=== PATIENT | male | born 2000 | race Caucasian/White ===

== ENCOUNTER 2018-06-20 18:38 | Emergency (ER) | payer MEDICAID, SELFPAY ==
[2018-06-20 18:39] VITALS: BP 175/97; PULSE 106; RESP 19; TEMP 36.9; O2SAT 97; BMI 48.7
--- NOTE | 2018-06-20 19:24 | ED.VISSUMM ---
- ER Visit Summary Date of Service: 06/20/18 Chief Complaint: Migraine History of Present Illness: The patient is a 17 M with a history of chronic migraines for the past 3 years presented with what he describes as his typical migraine. He states that he has a migraine headache 2-3 days per week. He has been seeing his primary care physician and was trialed on multiple different migraine medications without resolution. He denies any new or concerning features. Denies visual changes. Denies neck pain or fever. No head trauma. Light does make it somewhat worse but otherwise no obvious relieving or exacerbating factors. Denies history of high blood pressure. Physical Examination: He is slightly hypertensive but other vitals are within normal limits. His repeat blood pressure was improved. Pupils are equal and reactive. Neck is supple. No meningeal findings. Heart tones are regular without murmur. Lungs are clear bilaterally. Abdomen is soft and nontender. Test Results: None performed Emergency Department Course and Treatment: This is a chronic recurrent problem for him. His blood pressure is somewhat elevated here today but he has a completely normal neurologic exam. It was repeated manually and was much better but I still think he needs close follow-up. He was advised to keep track of his pressures at home and follow closely with his family physician. Given the chronicity of his headaches and the fact that he states he has never seen a neurologist or had an MRI, I do think it is reasonable for him to see neurology at this point especially since he is having them multiple times per week. He looks well here and the headache was not sudden or severe at onset. No recent head trauma. I do not suspect subarachnoid hemorrhage or brain tumor at this time but I think he still should undergo outpatient imaging. His mother is at the bedside and she will help arrange this. He was given a referral to neurology. Treatment Plan: He was treated with oral Naprosyn, Benadryl, and Phenergan here. He did not want intramuscular medications ON IV. He was given referral to neurology. Disposition: Home stable condition Impression: Initial encounter chronic recurrent migraine, initial encounter elevated blood pressure in the emergency department without diagnosis of hypertension This note was generated with [employer] dictation software. It may contain incorrect words, spelling, and punctuation that were not noted in review of the chart prior to signing ED Disposition - Plan for ED Patient: Chief Complaint: Headache Instructions: ED Cephalgia Unspecified, Taking Your Blood Pressure Prescriptions: proMETHazine tablet [Phenergan] 25 mg PO Q6H PRN PRN #10 tablet PRN Reason: Nausea DiphenhydrAMINE [Benadryl] 25 mg PO BID PRN PRN #20 capsule PRN Reason: Pain Naproxen [Naprosyn] 500 mg PO BID PRN #20 tablet Referrals: NOT,DEFINED [Primary Care Provider] -
[2018-06-20] MEDS: DiphenhydrAMINE 25 MG Capsule 50 MG PO (19:30)
[2018-06-20] MEDS: Naproxen 375 MG Tablet 500 MG PO (19:30)
[2018-06-20] MEDS: proMETHazine 25 MG Tablet PO (19:30)
--- NOTE | 2018-06-20 19:31 | ED.DCSUM_ITS ---
- ER Visit Summary Date of Service: 06/20/18 Chief Complaint: [] History of Present Illness: The patient is a 17 M [] Physical Examination: [] Test Results: [] Emergency Department Course and Treatment: [] Treatment Plan: [] Disposition: [] Impression: [] This note was generated with [employer] dictation software. It may contain incorrect words, spelling, and punctuation that were not noted in review of the chart prior to signing ED Disposition - Plan for ED Patient: Chief Complaint: Headache Instructions: Taking Your Blood Pressure, ED Cephalgia Unspecified Prescriptions: proMETHazine tablet [Phenergan] 25 mg PO Q6H PRN PRN #10 tablet PRN Reason: Nausea DiphenhydrAMINE [Benadryl] 25 mg PO BID PRN PRN #20 capsule PRN Reason: Pain Naproxen [Naprosyn] 500 mg PO BID PRN #20 tablet Referrals: NOT,DEFINED [Primary Care Provider] -
[2018-06-20 19:32] VITALS: BP 140/90
[2018-06-20 19:33] VITALS: BP 140/90; PULSE 96; RESP 19; O2SAT 96
== END 2018-06-20 19:56 | disposition home or self-care (01) ==
LOC: ED 19:53
PROVIDERS: Emergency Provider Emergency Medicine; Family Provider Pediatrics; PCP Pediatrics
DX: G43.909 Migraine, unspecified, not intractable, without status migrainosus (principal); R03.0 Elevated blood-pressure reading, without diagnosis of hypertension
CPT/HCPCS: 99283

== ENCOUNTER 2019-11-03 08:10 | Emergency (ER) | payer MEDICAID, SELFPAY ==
[2018-11-29 12:19] VITALS: BMI 50.6
[2019-11-03 08:11] VITALS: BP 161/106; PULSE 119; RESP 17; TEMP 36.8; O2SAT 97; BMI 48.7
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
--- NOTE | 2019-11-03 09:35 | ED.DEP ---
ED Disposition - Plan for ED Patient: Instructions: Sprain Foot Prescriptions: Ibuprofen [Motrin] 800 mg PO TID PRN PRN #20 tab PRN Reason: Pain Or Fever Prescription Printed Referrals: Care Physician,No Primary [Primary Care Provider] - Georgiana Cooper DO [STAFF PHYSICIAN] - 5-7 Days
[2019-11-03] MEDS: Ibuprofen 400 MG Tablet 800 MG PO (09:52)
[2019-11-03 09:58] VITALS: BP 160/113; PULSE 81; RESP 18
== END 2019-11-03 10:07 | disposition home or self-care (01) ==
LOC: ED 08:38
PROVIDERS: Emergency Provider Emergency Medicine
DX: S93.602A Unspecified sprain of left foot, initial encounter (principal); W01.0XXA Fall on same level from slipping, tripping and stumbling without subsequent striking against object, initial encounter; Y93.9 Activity, unspecified
CPT/HCPCS: 73630; 99283

== ENCOUNTER 2021-07-16 15:20 | Emergency (ER) | payer MEDICAID, SELFPAY ==
[2021-07-16 15:21] VITALS: BP 140/95; PULSE 60; RESP 18; TEMP 36.2; O2SAT 100; BMI 30.1
--- NOTE | 2021-07-16 16:25 | EDS_ITS ---
HPI History of Present Illness Chief Complaint: Laceration Informant: patient Onset/Context/Timing Onset: Today Mechanism/Context: other (Dog bite) Location: Right upper lip Worsened by: Nothing Relieved by: Pressure Associated Symptoms Associated Symptoms: Negative for Parasthesias, Weakness, Inability to ambulate and Loss of consciousness Narrative Narrative: Patient presents with dog bite to his upper lip that occurred today. Patient states it was his dog that bit him. Patient states this occurred approximate 1 hour prior to arrival. Patient states his pain is sharp and aching. Patient states it is better when he applies pressure to the area. Patient is unsure of his last tetanus. Patient denies any other injuries. Patient states the dog's immunizations are up-to-date. Tetanus Immunization: Unknown [facility] Medical History History of frequent headaches Home Medications amoxicillin-pot clavulanate 875 mg PO Q12H #20 tablet 07/16/21 [Rx Last Taken Unknown] Allergy/AdvReac Type Severity Reaction Status Date / Time No Known Allergies Allergy Verified 07/16/21 15:21 Family History (Updated 11/29/18 @ 12:23 by Michelle Go) Other Cancer Heart disease Surgical History History of tonsillectomy and adenoidectomy Social History Smoking Status: Never smoker alcohol intake: never ROS ROS ED Constitutional Constitutional ED: Denies chills or fever(s) Eyes Eyes: Denies blurry vision or change in vision ENT ENT ED: Denies rhinorrhea or sore throat Cardiovascular Cardiovascular: Denies chest pain or palpitations Respiratory/Chest Respiratory/Chest: Denies cough or dyspnea Gastrointestinal Gastrointestinal: Denies nausea or vomiting Genitourinary Genitourinary ED: Denies dysuria or hematuria Musculoskeletal Musculoskeletal: Denies back pain or neck pain Integumentary Denies abscess or rash Neurologic Neurologic: Denies headache(s) or weakness Allergic/Immunologic Allergic/Immunologic ED: Denies mouth swelling or urticaria EXAM Physical Exam Const Vital Signs: 07/16/21 15:21 Temperature 97.2 F L Temperature Source Temporal Pulse Rate 60 Respiratory Rate 18 Blood Pressure 140/95 H Blood Pressure Mean 110 Pulse Ox 100 Oxygen Delivery Method Room Air Positive well nourished and well developed General Appearance ED: well developed HEENT HEENT Narrative: There is a 2.5 cm full-thickness linear laceration over the right upper lip. There is moderate gapping of the wound margins. There are no foreign bodies. There is no active bleeding noted. Teeth are intact. Oral mucosa is pink and moist. Oropharynx is clear. Neck full ROM General: Negative for tenderness Neuro oriented x3, CN's II-XII intact bilaterally, moves all extremities, no focal motor deficits and no sensory deficits noted Sensorium / Orientation: alert Psych mental status grossly normal PROC Procedures Lacerations Upper lip: Length: 2.5 cm Depth: Sub Q Shape: Linear Prep: Sterile Conditions and Chlorhexadine Laceration repair: Lidocaine, Nerve block (Infraorbital) and Wound explored Suture Information: Vicryl (5 simple interrupted #5-0 Vicryl subcutaneous sutures were placed), Ethilon (5 simple interrupted #6-0 nylon sutures were placed), Simple, 5-0 and 6-0 MDM MDM MDM Narrative Medical decision making narrative: The wound was cleaned. The wound was anesthetized with 1% plain lidocaine via infraorbital nerve block. The wound was closed with 5 simple interrupted #5-0 Vicryl subcutaneous sutures and 5 simple interrupted #6-0 nylon sutures under sterile technique. Patient tolerated the procedure well. Bacitracin dressing was applied. Patient was given a tetanus booster. Patient was given a dose of Augmentin here. Patient was given a prescription for Augmentin. Patient was instructed to follow-up with his primary care physician in 5 days for wound recheck and suture removal. Patient understood and was agreeable with the plan. All questions were answered. Discharge Plan Triage Chief Complaint: Laceration ED Provider: Deuce Villavicencio Dx/Rx/DC Orders Clinical Impression: Laceration of vermilion border of upper lip, Dog bite of face Instructions: ED Laceration: All Closures, ED Scar Tips to Minimize Prescriptions: New amoxicillin-pot clavulanate [amoxicillin-pot clavulanate] 875 MG tablet 875 mg PO Q12H Qty: 20 RF: 0 Primary Care Provider: Care Physician,No Primary Referrals: Maik Humphrey MD [STAFF PHYSICIAN] - 5 Days for suture removal Care Physician,No Primary [Primary Care Provider] - Disposition Disposition: Home, Self Care
[2021-07-16] MEDS: Diphth,Pertuss(Acell),Tet Vac 0.5 ML Vial IM (17:05)
[2021-07-16] MEDS: Lidocaine 1% (20 ml mdv) 20 ML Vial INFILT (17:06)
[2021-07-16] MEDS: Amox/Clavulanate 875 MG Tablet PO (17:24)
[2021-07-16 17:29] VITALS: RESP 18
== END 2021-07-16 17:33 | disposition home or self-care (01) ==
PROVIDERS: Emergency Provider Emergency Medicine
DX: S01.551A Open bite of lip, initial encounter (principal); Z23 Encounter for immunization; W54.0XXA Bitten by dog, initial encounter; Y93.89 Activity, other specified; Y92.009 Unspecified place in unspecified non-institutional (private) residence as the place of occurrence of the external cause; Y99.8 Other external cause status
CPT/HCPCS: 12011; 90715; 96372; 99283

== ENCOUNTER 2022-03-07 17:40 | Emergency (ER) | payer MEDICAID, SELFPAY ==
[2022-03-07 17:41] VITALS: BP 156/98; PULSE 110; RESP 18; TEMP 37.3; O2SAT 98; BMI 34.7
--- NOTE | 2022-03-07 18:41 | RAD_ITS ---
STUDY: XR Shoulder Min 2 Views REASON FOR EXAM: Male, 21 years old. PAIN TECHNIQUE: XR Shoulder Min 2 Views RIGHT COMPARISON: None. FINDINGS: Normal glenohumeral articulation. Normal acromioclavicular joint. Normal acromion. Fracture of the right proximal humerus. The soft tissue structures are unremarkable. Normal visualized pulmonary apex. RAD/Shoulder min 2 Views IMPRESSION: Fracture of the right proximal humerus. Electronically Signed: Ernesto Vazquez MD at 19:18 EDT ,
--- NOTE | 2022-03-07 18:41 | RAD_ITS ---
STUDY: XR Pelvis 1 or 2 Views 03/07/2022 6:56 PM REASON FOR EXAM: Male, 21 years old. PAIN TECHNIQUE: XR Pelvis 1 or 2 Views COMPARISON: None FINDINGS: There is a non-specific bowel gas pattern. Normal visualized soft tissue structures. Normal bilateral iliac wings, sacroiliac joints and visualized sacrum. Normal visualized bilateral superior and inferior pubic rami. Normal pubic symphysis. Normal ischial tuberosities. Normal visualized right femoral head. Normal right acetabulum. Normal right hip joint. Normal visualized left femoral head. Normal left acetabulum. Normal left hip joint. RAD/Pelvis 1 or 2 Views IMPRESSION: No acute findings. Electronically Signed: Ernesto Vazquez MD at 19:16 EDT ,
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
[2022-03-07 20:05] VITALS: BP 128/78; PULSE 78; RESP 16; O2SAT 98
== END 2022-03-07 20:25 | disposition home or self-care (01) ==
PROVIDERS: Emergency Provider Emergency Medicine; Visit Provider Emergency Medicine
DX: S42.291A Other displaced fracture of upper end of right humerus, initial encounter for closed fracture (principal); V68.0XXA Driver of heavy transport vehicle injured in noncollision transport accident in nontraffic accident, initial encounter; Y93.89 Activity, other specified; Y92.410 Unspecified street and highway as the place of occurrence of the external cause; E66.9 Obesity, unspecified; F17.290 Nicotine dependence, other tobacco product, uncomplicated; Z68.34 Body mass index [BMI] 34.0-34.9, adult
CPT/HCPCS: 72170; 73030; 73552; 99284

== ENCOUNTER 2022-05-31 11:30 | Outpatient (RCR) | payer MEDICAID, SELFPAY ==
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
--- NOTE | 2022-05-19 09:24 | HP.PTREVAL_ITS ---
GREGORIO Mcclain, It has been my pleasure to treat MARGUERITE GIBSON over the last 5 visits for Right proximal humerus fracture of greater tuberosity. Please see the progress note below for an update on the physical therapy plan of care! Subjective: Pt. reports having increase pain at anterior R shoulder, 3/10 pain today. No N/T. He reports being compliant with HEP. Pt. reports having anterior shoulder pain since his injury. He is back to work and is able to do most things, but has pain with any lifting and any over head activities. He saw his physician who reports the facture is doing much better, but do to this anterior shoulder pain she has concerns about biceps/labral issues. Objective/Function: POSTURE: Pt. has a marked thoracic kyphotic posture in sitting. Pt. is able to improve with TCing, but unable to maintain. PALPATION: pt. tender along long head of biceps worse at anterior sub acromial space. No pain along humerus, no pain along scapula. + speeds testing, + empty can (weakness and pain), negative drop test,. MMT: R shoulder: flexion 4+/5, and 4+/5, ext 5/5, ER 5-/5, IR 5/5 Pain noted with ER, flexion and ABD testing. ROM: AROM: R shoulder flexion 160deg, abd 170deg, functional ER C5, functional IR T12 tight feeling PROM: flexion 180deg mild increase NW, ABD 180deg mild increase NW, ER at 90deg of abd 90deg mild increase NW, IR at 90deg of abd 40deg. Pt. has signs of biceps involvement. I plan to slowly introduce stress to long head of biceps as tolerated along with strengthening RTC. Plan Plan: Start with RTC strengthening, lower load higher reps progressing as tolerated. Add in biceps DFM and progressive loading of biceps tendon as tolerated. Balance/Gait/Functional tests - Balance/Special Test Scores Quick DASH Score: 36.3625 Goals Goal 1:: Pt. will improve right shoulder AROM flexion and abduction > 160 degrees in order to improve reaching overhead. Goal Time Frame: 6-8 Weeks Goal Progress: Goal Met Goal 2:: Pt. will improve right shoulder strength to 4+/5 for all motions in order to complete ADL's. Goal Time Frame: 6-8 Weeks Goal Progress: Progressing Goal 3:: Pt. will be able to reach overhead and out to the side with no right shoulder pain. Goal Time Frame: 6-8 Weeks Goal Progress: Progressing Goal 4:: Pt. will be able to lift at least 20# overhead with no right shoulder pain. Goal Time Frame: 6-8 Weeks Goal Progress: Progressing Goal 5:: Pt. will rate right shoulder pain at worst at 3/10 with ADL's. Goal Time Frame: 6-8 Weeks Goal Progress: Progressing Goal 6:: Pt. will improve Quick Dash score < 40% impairment in order to improve ADL's. Goal Time Frame: 6-8 Weeks Goal Progress: Progressing Anticipated Interventions Patient/Client Instruction: Educate patient on: Condition, Plan of Care, Risk Factors, Benefits of Fitness Program For the Purpose of:: To foster healthy habits, To improve decision making, To facilitate caregiver knowledge, To improve self management, To prevent re- injury, To improve ability to perform tasks related to life management Therapeutic Exercise to Include: Strength training, Power training, Body mechanics, Postural training, Passive ROM, Active ROM For the Purpose of:: To decrease pain, To decrease swelling/inflammation, To increase ROM, To improve nutrient delivery to tissue, To increase oxygenation perfusion, To improve muscle performance and motor function, To improve health of tissue, To decrease soft tissue restriction, To increase flexibility/ROM Manual Therapy Techniques to Include: Massage, Mobilization, Soft tissue mobilization For the Purpose of:: To decrease pain, To decrease swelling/inflammation, To increase ROM, To improve nutrient delivery to tissue, To increase oxygenation perfusion, To improve muscle performance and motor function Please do not hesitate to contact me at [phone] by phone or if you have questions or concerns regarding this new plan of care! Sincerely, Mark Barreto DPT
== END 2022-05-31 19:00 | disposition home or self-care (01) ==
LOC: PT 11:30
PROVIDERS: PCP Family Medicine
DX: S42.251D Displaced fracture of greater tuberosity of right humerus, subsequent encounter for fracture with routine healing (principal); X58.XXXD Exposure to other specified factors, subsequent encounter
CPT/HCPCS: 97110; 97161; 97164

== ENCOUNTER → 2022-07-06 | Outpatient (CLI) | payer MEDICAID, SELFPAY ==
--- NOTE | 2022-07-06 10:35 | RAD_ITS ---
CLINICAL HISTORY: Male, 22 years old. Right shoulder pain. PROCEDURE: ARTHROGRAM - RIGHT SHOULDER. CONSENT: The procedure as well as the benefits and possible complications including infection and bleeding were explained to the patient. Informed consent was obtained. FLUOROSCOPY TIME (if supplied): (36 seconds) minutes/seconds Injection Information: 10 cc of dilute MRI contrast Number of images obtained: 5 TECHNIQUE: (All elements of maximal sterile barrier technique followed, including US elements as applicable) The patient was in the supine position. The overlying skin was prepped and draped in the usual sterile fashion. Following local anesthetic application and under direct fluoroscopic guidance, a 22-gauge spinal needle was placed into the shoulder joint. 2 cc of ISOVUE 300 was injected for confirmation. Following this, 10 cc of dilute MRI contrast was injected. The patient tolerated the procedure well. RAD/Arthrogram Shoulder w/ MRI IMPRESSION: Successful right shoulder arthrogram. The patient tolerated the procedure well. Electronically Signed: Andrew Davis MD at 12:10 EDT ,
--- NOTE | 2022-07-06 11:14 | MRI_ITS ---
STUDY: MR RIGHT SHOULDER ARTHROGRAPHY REASON FOR EXAM: Anterior right shoulder pain for 4 months after shoulder injury. TECHNIQUE: Standardized fat and water weighted pulse sequences were obtained in all 3 orthogonal planes after intra-articular instillation of dilute Clariscan. COMPARISON: Arthrogram images preceding the MRI, radiograph report 05/25/2022. FINDINGS: There is a low-grade partial-thickness tear of the articular surface of the supraspinatus tendon (T1 coronal images 10-11) measuring approximately 0.7 cm in length. There is a small linear high-grade partial-thickness tear of the articular surface of the distal infraspinatus tendon at the greater tuberosity insertion (T1 coronal image 8). Normal subscapularis tendon. Normal teres minor tendon. Normal supraspinatus muscle. Normal infraspinatus muscle. Normal subscapularis muscle. Normal teres minor muscle. Normal glenohumeral articulation. There is a healing nondisplaced fracture of the greater tuberosity with only mild residual bone edema (T2 coronal images 9-11). Normal biceps labral complex. Normal intracapsular long biceps tendon. Normal labrum. Normal capsulo- ligamentous complex. Normal rotator interval. Normal acromioclavicular articulation. There is a Type II morphology (curved), with a neutral orientation. There is no subacromial-subdeltoid bursal fluid. Normal visualized coracohumeral and coracoacromial ligaments. Normal deltoid muscle. Normal trapezius muscle. MRI/Upper Ext Jt Only W/Contrast IMPRESSION: Low-grade partial-thickness tear of the supraspinatus tendon. Small partial-thickness tear of the infraspinatus tendon. Healing nondisplaced fracture of the greater tuberosity. Electronically Signed: Greg Finley MD at 12:27 EDT ,
[2022-07-06] MEDS: Gadoterate Meglumine Diluted 10 ML, Iopamidol 5 ML, Lidocaine 1% (20 ml mdv) 5 ML, Epin... INTRAARTIC (11:40)
[2022-07-06] MEDS: Iopamidol 10 ML in Syringe 1 EACH 600 ML INTRAARTIC (11:40)
[2022-07-06] MEDS: Lidocaine 2% (5ml sdv) 5 ML VIAL.MPF INFILT (11:40)
== END | disposition home or self-care (01) ==
PROVIDERS: PCP Family Medicine
DX: S46.811A Strain of other muscles, fascia and tendons at shoulder and upper arm level, right arm, initial encounter (principal); X58.XXXA Exposure to other specified factors, initial encounter; M24.811 Other specific joint derangements of right shoulder, not elsewhere classified
CPT/HCPCS: 23350; 73222; 77002; Q9967

== ENCOUNTER 2023-02-08 07:47 | Day surgery (SDC) | payer MEDICAID, SELFPAY ==
[2023-02-08] VITALS (8 sets, daily range): BP systolic 110–143; BP diastolic 76–90; PULSE 61–92; RESP 16–18; TEMP 36.4–37.1; O2SAT 92–100; BMI 38.9
[2023-02-08] MEDS: Lactated Ringers 1,000 ML 15 ML IV ×3 (08:18→10:31)
[2023-02-08] MEDS: Cefazolin 2 GM in 0.9% Normal Saline 100 ML IV (08:59)
--- NOTE | 2023-02-08 09:15 | TESH_PTH ---
PATIENT: MARGUERITE GIBSON [place] [facility] [id number] AGE/SX: 22/M ROOM: RE02/08/[address]: Dr. Yoel Ross MD : 2000 BED: DIS: 02/08/2023 SPEC #: [id number] RECD: 02/08/23 14:00 STATUS: JARROD RADHA #: [id number] PRASHANT: 02/08/23 09:[address]: Yoel Ross DEPT: SURGICAL PATHOLOGY RECD BY: Yana Fernández ENTERED: 02/09/23 10:51 SP TYPE: TENDON OTHR DR: Dr. Georgiana Cooper, DO Tissues: Tendon and tendon sheath, NOS Procedures: Surgery Specimen Level III HEADER OPERATION: Shoulder arthroscopy, subacromial decompression PRE-OP DIAGNOSIS: Right rotator cuff tear and bicep pain TISSUE SUBMITTED: Biceps tendon MICROSCOPIC DIAGNOSIS Biceps tendon, excision: A piece of dense fibroconnective tissue with reactive changes. SJ:hernandez 02/10/2023 MICROSCOPIC DESCRIPTION Slides are reviewed. GROSS DESCRIPTION Received in fixative is one container labeled with the patient's name and designated biceps tendon. The specimen consists of an elongated fragment of white tendinous tissue with attached dark condon tissue measuring 5.0 x 0.7 x 0.6 cm. The specimen is sectioned and submitted in its entirety in one cassette. / AM:hernandez 02/09/2023 TC:5 CPT: 01230
[2023-02-08] MEDS: Epinephrine (1 mg/ml) 1 MG/ML VIAL (10:06)
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
--- NOTE | 2023-02-08 10:55 | DCINST_ITS ---
Discharge Instructions Diet Discharge Diet: No restrictions Activity Discharge Activity: Return to Normal Activity Ice area for (Minutes): 15 Additional Activity Instructions:: pendulums ok four times a day, hand wrist and elbow ROM as tolerated, no lifting over 1 pound Dressing / Incision Call your doctor if your incision/area has: Continuous Slow Oozing, Sudden Increased Bleeding, Increased Pain/ Swelling, Increased Redness, Foul Smelling Discharge and Swelling at the incision site Remove Dressing in: leave in place till F/U Follow Up Care Please Follow Up With: Yoel Ross MD When: 2 days Test Results: Test results from this visit will be discussed in further detail at your follow- up appointment, if applicable. Discharge Plan Admission Attending Provider: Yoel Ross Primary Care Provider: Georgiana Cooper Instructions Patient Instructions: After Shoulder Arthroscopy Discharge Orders/Prescriptions Prescriptions: New oxycodone-acetaminophen [Percocet] 5-325 mg tablet 1 tab PO Q4H MDD 6 PRN (Reason: pain) 5 Days Qty: 30 0RF No Action meloxicam [Mobic] 15 mg Tablet 15 mg PO PRN PRN (Reason: Pain) tramadol 50 mg Tablet 50 mg PO Q4H PRN (Reason: Pain) Referrals / Follow Up: Georgiana Cooper DO [Primary Care Provider] - Yoel Ross MD [Med Staff - Active Staff] - Disposition Disposition (needs filled in before D/C Order can be placed): Home, Self Care
--- NOTE | 2023-02-08 10:59 | OP.PCM_ITS ---
Problems Associated Problem List Diagnoses (1) Biceps tendinitis of right upper extremity: (2) Partial thickness rotator cuff tear: Report of Operation Date of Procedure: 02/08/23 Pre-Operative Diagnosis: Right shoulder impingement syndrome rotator cuff tear biceps tendinitis Post-Operative Diagnosis: Same Surgery/Procedure Performed:: Right shoulder arthroscopy, subacromial decompression, rotator cuff repair, biceps subpectoral tenodesis Surgeon: Yoel Ross Type of Anesthesia: Block,Regional and General Anesthesiologist: Yosi Milner Estimated Blood Loss (mL): 50 Description of Procedure: Patient brought the operating room theater. Placed supine on the table. 3 g IV Ancef administered prior to start of procedure. General anesthesia induced. Patient transferred right side up lateral decubitus with the aid of a beanbag positioner. Axillary roll placed. SCDs on legs. All bony prominences padded. Right upper extremity prepped and draped in usual sterile fashion chlorhexidine- based prep solution allowing over 3 minutes drying time prior to draping. 10 pounds of inline traction with the arm in the arm centeno 35 degrees of abduction was used. Preoperative timeout performed to confirm the site patient and surgery. I began by using a standard posterior arthroscopy portal inserting the arthroscope into the intra-articular portion of the shoulder. Did a diagnostic arthroscopy. Anterior portal created inside-out spinal needle localization through the rotator interval just anterior to the biceps tendon. Cartilage on the humeral head and glenoid appeared normal. There is a sublabral foramen. Some minor fraying gently debrided. No obvious labral tear that I could probe into. Subscapularis appeared normal. Undersurface of the anterior leading edge had partial-thickness fraying and tearing. Gently debrided. Long head of the biceps root was stable but there is longitudinal tearing of the biceps and able to slightly subluxate this medially therefore a performed a biceps tenotomy intra-articular using the ablator. No loose bodies. Bare spot appeared normal. Marked the tear using spinal needle. Then next inserted the arthroscope in the subacromial space. Moderate amount of noninflammatory bursitis removed that. Did a subacromial decompression to flat margins. The subacromial space was little bit narrowed this gave a little bit more working area. Identified the area of the tear that I previously marked with a spinal needle. This was at the anterior one third of the supraspinatus tendon insertion. No obvious full-thickness tearing therefore elected to do a trans tendon 'pasta' repair. I inserted 2 Arthrex fiber tack all suture suture anchors self punching, 1 anterior and 1 posterior to the tear at the area of the medial footprint. Set the anchors. Then passed the working stitch through the loop suture in the contralateral anchor passes through the anchor itself to create a knotless configuration. The same thing on the other anchor and therefore 2 anterior to posterior sutures repairing the tear down. I fixed these solidly and cut the sutures short. This created a solid repair. Took final arthroscopy pictures and withdrew the arthroscope. Next turned my attention to the biceps subpectoral tenodesis. Made a longitud inal incision overlying the long head of the biceps in the proximal anteromedial aspect of the humerus. Carried dissection down through skin and subcutaneous tissue achieved meticulous hemostasis. Incised the fascia in line with skin incision. Identified long head of the tendon delivered this through the incision. I shorten the tendon. I used the Arthrex Abad needle with loop suture for 5 throws to create a locking construct and then passed again the sutures just proximal to the final suture to create a locking construct. Cut the suture midway, passed the ends in opposite directions through the button. Then identified the biceps groove just distal to the pectoralis insertion. Used the spade tip drill bit to create a unicortical hole. Irrigated any bone dust. Then passed the button through this flipped the button. I then passed the tendon to the bone tunnel and passed 1 free limb of the suture back through the tendon and used 5 interrupted half hitches with the sutures cut short to lock the tendon down under appropriate tension. Repair was solid. Wound thoroughly irrigated subcutaneous tissue closed with 2-0 Vicryl sutures skin with 3-0 Monocryl. Skin cleaned with wet dry dressing followed application of Steri- Strips Adaptic 4 x 4 gauze ABD dressing and Mepore tape and a sling for the upper extremity with plan to place the abduction pillow once the patient is up a nd mobile. Case terminated patient woken up from the general anesthetic transferred off the operating table taken to postanesthetic care unit in stable condition. All sponge needle instrument counts were correct. Plan for the patient pendulum exercises QID discharged home according to day surgery criteria and follow-up in the office in 2 days time. Complications none Admit VTE Documentation VTE Present on Admission: No VTE Mechan Device Prophylaxis: SCD's Reason prophylaxis not ordered:: Treatment Not Indicated Procedures Musculoskeletal [id number]: Other Procedure See Report
[2023-02-08] MEDS: HYDROcodone Bitartrate/Apap 5/325 Tablet PO (12:55)
== END 2023-02-08 14:01 | disposition home or self-care (01) ==
LOC: SDC 07:48 → AC 07:49
PROVIDERS: PCP Family Medicine; Referring Provider Orthopaedic Surgery Sports Medicine; Visit Provider Orthopaedic Surgery Sports Medicine
PROC: (CPT 29805; principal; 2023-02-08 08:55)
DX: M75.21 Bicipital tendinitis, right shoulder (principal); S46.011S Strain of muscle(s) and tendon(s) of the rotator cuff of right shoulder, sequela; F17.290 Nicotine dependence, other tobacco product, uncomplicated; V89.2XXS Person injured in unspecified motor-vehicle accident, traffic, sequela
CPT/HCPCS: 23430; 29822; 29827; 01716; 88304; J7120; J2405

== ENCOUNTER → 2023-03-08 | Outpatient (CLI) | payer MEDICAID, SELFPAY ==
[2023-03-08 12:40] LABS: Hematocrit 50.4 % (40-54); Hemoglobin 16.7 g/dL (13.0-16.5); Mean Corp Hgb Conc 33.1 g/dL (32-36); Mean Corpuscular Volume 81.6 fL (80-94); Mean Platelet Vol. 9.8 fl (6.2-12.0); Platelet Count 299 K/mm3 (150-450); RBC Distribution Width CV 12.3 % (11.6-14.6); RBC Distribution Width SD 36.5 fl (35.1-43.9); Red Blood Count 6.18 M/mm3 (4.6-6.2); White Blood Count 7.1 K/mm3 (4.4-11.0)
[2023-03-08 13:12] LABS: Vitamin B12 474 pg/mL (211-911)
[2023-03-08 13:18] LABS: ALB/GLOB Ratio 1.3 RATIO (0.9-2.4); AST(SGOT) 15 U/L (15-37); Alanine Aminotransfer ALT/SGPT 31 U/L (16-61); Albumin, Serum 4.1 g/dL (3.2-5.0); Alkaline Phosphatase 77 U/L (45-117); Anion Gap 5 (5-15); BUN 19 mg/dL (7-18); BUN/Creat Ratio 19.3 RATIO (10-20); Calcium,Total 8.9 mg/dL (8.5-10.1); Chloride 104 mmol/L (98-107); Creatinine, Serum 0.98 mg/dL (0.70-1.30); EST Glomerular Filtration Rate 99 mL/min (>60); Est Glom Filt Rate - Afr Amer 120 mL/min (>60); Globulin 3.2 g/dL (2.2-4.2); Glucose 88 mg/dL (74-106); Potassium 3.7 mmol/L (3.5-5.1); Protein, Total 7.3 g/dL (6.4-8.2); Sodium Level 136 mmol/L (136-145); Thyroid Stim Hormone (TSH) 2.44 uIU/mL (0.358-3.74)
[2023-03-10 22:06] LABS: Vitamin B1, Thiamine 137.1 nmol/L (66.5-200.0)
== END | disposition home or self-care (01) ==
LOC: MTLAB 10:14
PROVIDERS: PCP Family Medicine; Referring Provider Psychiatry & Neurology Neurology; Visit Provider Psychiatry & Neurology Neurology
DX: R41.3 Other amnesia (principal); F07.81 Postconcussional syndrome
CPT/HCPCS: 36415; 80053; 82607; 82746; 84425; 84443; 85027

== ENCOUNTER → 2023-03-21 | Outpatient (CLI) | payer MEDICAID, SELFPAY ==
--- NOTE | 2023-03-21 06:43 | MRI_ITS ---
HISTORY: Postconcussive memory loss. TECHNIQUE: Multiplanar and multisequence MR images of the brain were obtained before and after the intravenous administration of 23 mL Clariscan. 336 images. COMPARISON: None. FINDINGS: BRAIN PARENCHYMA: No significant signal abnormality or enhancing lesion in the brain parenchyma. No abnormal focus of restricted diffusion. No acute intracranial hemorrhage identified. CSF SPACES: Cerebral ventricles, cortical sulci, and other extra-axial CSF spaces within normal limits in size for age. Cavum septum pellucidum incidentally noted. No significant midline shift or other mass effect.No extra-axial fluid collection. VASCULAR SYSTEM: Major intracranial flow voids are maintained. PARANASAL SINUSES AND MASTOID AIR CELLS: Polypoid mucosal thickening of the sphenoid and maxillary sinuses. ORBITS: Symmetric contents. MRI/Brain W/WO Contrast IMPRESSION: Unremarkable examination of the brain without evidence for significant signal abnormality or enhancing intracranial mass. Paranasal sinus mucous retention cysts. Electronically Signed: Margaret Davidson MD at 8:49 EDT ,
== END | disposition home or self-care (01) ==
LOC: MRI 06:41
PROVIDERS: PCP Family Medicine; Referring Provider Psychiatry & Neurology Neurology; Visit Provider Psychiatry & Neurology Neurology
DX: F07.81 Postconcussional syndrome (principal); R41.3 Other amnesia
CPT/HCPCS: 70553; A9575

== ENCOUNTER → 2023-03-23 | Outpatient (CLI) | payer MEDICAID, SELFPAY ==
--- NOTE | 2023-03-23 09:03 | RAD_ITS ---
STUDY: X-RAY - CERVICAL SPINE REASON FOR EXAM: Male, 22 years old. neck pain TECHNIQUE: AP and lateral view(s) of the cervical spine were obtained. COMPARISON: None FINDINGS: Normal anterior atlantoaxial articulation. Normal odontoid process. Normal cervical lordosis. Normal vertebral bodies and endplates. Normal disc space heights. Normal visualized intervertebral neuroforamina. The soft tissue structures are unremarkable. RAD/Cerv Spine 2 or 3 Views IMPRESSION: Normal x-ray examination of the visualized cervical spine. Electronically Signed: Rogelio Hernández MD at 22:32 EDT ,
== END | disposition home or self-care (01) ==
PROVIDERS: PCP Family Medicine; Referring Provider Psychiatry & Neurology Neurology; Visit Provider Psychiatry & Neurology Neurology
DX: F07.81 Postconcussional syndrome (principal); M54.2 Cervicalgia; R41.3 Other amnesia
CPT/HCPCS: 72040; 95819

== ENCOUNTER 2023-05-21 09:19 | Emergency (ER) | payer MEDICAID, SELFPAY ==
[2023-05-21 09:20] VITALS: BP 143/90; PULSE 77; RESP 18; TEMP 36.4; O2SAT 98; BMI 38.1
--- NOTE | 2023-05-21 09:54 | ED.VIS.LOWEX ---
HPI History of Present Illness Chief Complaint: Lower Extremity Injury Narrative Narrative: 22-year-old male presenting with right foot pain. He states he was moving some blocks at home and kicked 1 a little too hard. He states he did this intentionally but did not realize it would hurt. He states it hurts proximal to the right third toe. He states this happened about 3 days ago. He has been ambulatory with an antalgic gait. He has not tried ice but he did try ibuprofen and it did not help. He is only tried 1 dose. Denies pain elsewhere. No numbness or tingling. [facility] Medical History Internal derangement of right shoulder Loss of consciousness Vapes nicotine containing substance Wears glasses Home Medications meloxicam 15 mg tablet 15 mg PO DAILY 05/02/23 [History Last Taken Unknown] Allergy/AdvReac Type Severity Reaction Status Date / Time No Known Allergies Allergy Verified 05/21/23 09:20 Family History Mother Cancer Hypertension CVA (cerebral vascular accident) Diabetes Grandmother Hypertension Grandfather Colon cancer Hypertension Other COPD (chronic obstructive pulmonary disease) Heart disease Surgical History History of tonsillectomy and adenoidectomy Social History Smoking Status: Unknown if ever smoked Smokeless tobacco user: other Electronic Cigarette Use: with nicotine second hand exposure: No alcohol intake: never substance use type: does not use what type of physical activity do you participate in: weight training seatbelt use: sometimes ROS ROS ED Constitutional Constitutional ED: Denies chills, fever(s) or sweats Eyes Eyes: Denies blurry vision or change in vision ENT ENT ED: Denies ear pain or sore throat Cardiovascular Cardiovascular: Denies chest pain, palpitations or racing heartbeat Respiratory/Chest Respiratory/Chest: Denies cough, dyspnea or sputum Gastrointestinal Gastrointestinal: Denies abdominal pain, constipation, diarrhea, nausea or vomiting Genitourinary Genitourinary ED: Denies dysuria, hematuria or urinary frequency Musculoskeletal Musculoskeletal: Reports other Details: Right foot pain ; Denies arthralgias, myalgias or neck pain Integumentary Denies abscess, Abrasions or rash Neurologic Neurologic: Denies headache(s), paresthesias or weakness Psychiatric Psychiatric: Denies anxiety, depression, suicidal ideation or suicidal thoughts Endocrine Endocrinology: Denies polydipsia or polyuria EXAM Physical Exam Const Vital Signs: 05/21/23 09:20 Temperature 97.5 F L Temperature Source Temporal Pulse Rate 77 Respiratory Rate 18 Blood Pressure 143/90 H Blood Pressure Mean 107 Pulse Ox 98 Oxygen Delivery Method Room Air Positive well nourished General Appearance ED: NAD HEENT Reports moist mucous membranes normocephalic and atraumatic Chest Wall inspection of chest normal Resp normal respiratory effort and no retractions Auscultation: Negative for rales, rhonchi or wheezes Cardio regular rate and regular rhythm Extremity Extremity Narrative: Pain to palpation proximal to the third toe on the right. No deformity. No ecchymosis. No swelling. Right foot neurovascular intact brisk cap refill to all 5 toes. No pain at the base of the fifth. Neuro CN's II-XII intact bilaterally Sensorium / Orientation: alert Motor Exam: strength 5/5 throughout Psych mental status grossly normal Skin no wounds MDM MDM MDM Narrative Medical decision making narrative: Patient presenting with right foot pain. He was offered Toradol but declines. I did obtain an x-ray of the right foot which on my interpretation shows no acute fracture. Patient counseled on findings. Looks and he is already on meloxicam. I recommended he alternate Tylenol and ice and elevate this. Offered a postop shoe but declines. He was offered crutches but declines. He will be discharged home to follow-up with his PCP. Impression #1 right foot contusion Radiography Diagnostic Testing: Clinical Impression(s) from Imaging Studies Foot X-Ray 05/21/23 10:04 IMPRESSION: Normal x-ray examination of the foot. Electronically Signed: Stalin Kenny MD at 10:21 EDT , Discharge Plan Triage Chief Complaint: Lower Extremity Injury ED Provider: Daryl Llanes Dx/Rx/DC Orders Instructions: ED Foot Contusion Prescriptions: No Action meloxicam 15 mg tablet 15 mg PO DAILY Primary Care Provider: Georgiana Cooper Referrals: Georgiana Cooper DO [Primary Care Provider] - Disposition Disposition: Home, Self Care
--- NOTE | 2023-05-21 10:04 | RAD_ITS ---
STUDY: X-RAY - RIGHT FOOT CLINICAL: Male, 22 years old. Dorsal foot pain TECHNIQUE: 3 view(s) of the foot. COMPARISON: None. FINDINGS: Normal talus, calcaneus, and tarsal bones. Normal visualized subtalar, talonavicular, calcaneocuboid, tarsal and tarsometatarsal articulations. Normal metatarsi. Normal metatarsophalangeal joint of the great toe. Normal tibial and fibular sesamoid bones. Normal interphalangeal joint of the great toe. Normal phalanges of the great toe. Normal second through fifth metatarsophalangeal joints. Normal interphalangeal joints and phalanges of the lesser toes. The soft tissue structures are unremarkable. RAD/Foot min 3 Views IMPRESSION: Normal x-ray examination of the foot. Electronically Signed: Stalin Kenny MD at 10:21 EDT ,
== END 2023-05-21 11:03 | disposition home or self-care (01) ==
PROVIDERS: Emergency Provider Student in an Organized Health Care Education/Training Program; PCP Family Medicine; Visit Provider Student in an Organized Health Care Education/Training Program
DX: S90.31XA Contusion of right foot, initial encounter (principal); W22.8XXA Striking against or struck by other objects, initial encounter; Y93.89 Activity, other specified; Y99.8 Other external cause status; Y92.009 Unspecified place in unspecified non-institutional (private) residence as the place of occurrence of the external cause; F17.290 Nicotine dependence, other tobacco product, uncomplicated
CPT/HCPCS: 73630; 99282

== ENCOUNTER 2023-07-20 10:30 | Outpatient (RCR) | payer MEDICAID, SELFPAY ==
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
--- NOTE | 2023-03-30 10:30 | HP.PTREVAL ---
Dr. Yoel Ross MD, It has been my pleasure to treat MARGUERITE GIBSON over the last 8 visits for R shoulder rot cuff repair 02/08/23. Please see the progress note below for an update on the physical therapy plan of care! Subjective: I am getting better, but I have a ways to go Objective/Function: R shoulder MMT: flex= 7, abd= 14 #F. R shoulder pain ranges from 2-7/10. R shoulder ROM: flex= 135, abd= 110 degrees. Pt is progressing well at this time but still lacks functional strength and ROM Plan Plan: Cont with resisted strengthening at that time consisting of rotator cuff and scap stab ex's Balance/Gait/Functional tests - Balance/Special Test Scores Quick DASH Score: 50.0000 Goals Goal 1:: Decrease R shoulder pain x 50% to aid with sleep Goal Time Frame: 4-6 Weeks Goal Progress: Progressing Goal 2:: Increase R shoulder flex and abd ROM to within 90% of L UE to aid with overhead activity Goal Time Frame: 4-6 Weeks Goal Progress: Progressing Goal 3:: Increase R shoulder flex and abd strength to within 90% of L UE to aid with return to work without limitation Goal Time Frame: 4-6 Weeks Goal Progress: Progressing Goal 4:: I with HEP Goal Time Frame: 4-6 Weeks Goal Progress: Progressing Anticipated Interventions Patient/Client Instruction: Educate patient on: Condition, Plan of Care For the Purpose of:: To improve self management Therapeutic Exercise to Include: Strength training, Endurance training, Flexibilty training, Passive ROM, Active ROM, Scapular Strength/Stabilization For the Purpose of:: To decrease pain, To increase ROM, To improve muscle performance and motor function Cryotherapy (ice pack, ice massage): Yes For the Purpose of:: To decrease pain Please do not hesitate to contact me at [phone] by phone or if you have questions or concerns regarding this new plan of care! Sincerely, Ernesto Ivy, PT, ATC
--- NOTE | 2023-04-28 13:01 | HP.PTREVAL ---
Dr. Yoel Ross MD, It has been my pleasure to treat MARGUERITE GIBSON over the last 17 visits for R shoulder rot cuff repair 02/08/23. Please see the progress note below for an update on the physical therapy plan of care! Subjective: I am still sore and feel weak. I still cant sleep at night. Objective/Function: R shoulder pain ranges from 3-7/10. R shoulder ROM: flex= 170, abd= 170 degrees. R shoulder MMT: flex= 10, abd= 15 #F. Pt has progressed well with ROM, cont to lack functional strength and is painful Plan Plan: Cont with resisted strengthening at that time consisting of rotator cuff and scap stab ex's. [ End ] Balance/Gait/Functional tests - Balance/Special Test Scores Quick DASH Score: 45.4525 Goals Goal 1:: Decrease R shoulder pain x 50% to aid with sleep Goal Time Frame: 4-6 Weeks Goal Progress: Progressing Goal 2:: Increase R shoulder flex and abd ROM to within 90% of L UE to aid with overhead activity Goal Time Frame: 4-6 Weeks Goal Progress: Progressing Goal 3:: Increase R shoulder flex and abd strength to within 90% of L UE to aid with return to work without limitation Goal Time Frame: 4-6 Weeks Goal Progress: Progressing Goal 4:: I with HEP Goal Time Frame: 4-6 Weeks Goal Progress: Progressing Anticipated Interventions Patient/Client Instruction: Educate patient on: Condition, Plan of Care For the Purpose of:: To improve self management Therapeutic Exercise to Include: Strength training, Endurance training, Flexibilty training, Passive ROM, Active ROM, Scapular Strength/Stabilization For the Purpose of:: To decrease pain, To increase ROM, To improve muscle performance and motor function Cryotherapy (ice pack, ice massage): Yes For the Purpose of:: To decrease pain Please do not hesitate to contact me at [phone] by phone or if you have questions or concerns regarding this new plan of care! Sincerely, Ernesto Ivy, PT, ATC
--- NOTE | 2023-06-06 09:39 | HP.PTREVAL ---
Re-Evaluation Intro: Dr. Yoel Ross MD, It has been my pleasure to treat MARGUERITE GIBSON over the last 29 visits for R shoulder rot cuff repair 02/08/23. Please see the progress note below for an update on the physical therapy plan of care! Subjective Subjective: I am sore from lifting heavy stuff Objective Objective/Function: Pt reports his pain ranges from 0-2/10 R shoulder ROM: flex= 155, abd= 155 degrees R shoulder MMT: flex= 22, abd= 44 #F Pt is still limited with work requirements at this time Plan Plan Plan: Cont with resisted strengthening, rotator cuff and scap stab ex's with further approval Balance/Gait/Functional tests Balance/Special Test Scores Quick DASH Score: 13.6350 Goals Goals Goal 1:: Decrease R shoulder pain x 50% to aid with sleep Goal Time Frame: 4-6 Weeks Goal Progress: Goal Met Goal 2:: Increase R shoulder flex and abd ROM to within 90% of L UE to aid with overhead activity Goal Time Frame: 4-6 Weeks Goal Progress: Goal Met Goal 3:: Increase R shoulder flex and abd strength to within 90% of L UE to aid with return to work without limitation Goal Time Frame: 4-6 Weeks Goal Progress: Progressing Goal 4:: I with HEP Goal Time Frame: 4-6 Weeks Goal Progress: Progressing Anticipated Interventions Anticipated Interventions Patient/Client Instruction: Educate patient on: Condition and Plan of Care For the Purpose of:: To improve self management Therapeutic Exercise to Include: Strength training, Endurance training, Flexibilty training, Passive ROM, Active ROM and Scapular Strength/Stabilization For the Purpose of:: To decrease pain, To increase ROM and To improve muscle performance and motor function Cryotherapy (ice pack, ice massage): Yes For the Purpose of:: To decrease pain Re-Evaluation Ending Re-evaluation ending: Please do not hesitate to contact me at [phone] by phone or if you have questions or concerns regarding this new plan of care! Sincerely, Ernesto Ivy, PT, ATC
--- NOTE | 2023-06-15 18:09 | HP.PTREVAL ---
Re-Evaluation Intro: Dr. Yoel Ross MD, It has been my pleasure to treat MARGUERITE GIBSON over the last 30 visits for R shoulder rot cuff repair 02/08/23. Please see the progress note below for an update on the physical therapy plan of care! Subjective Subjective: I was really sore over the weekend from moving. Objective Objective/Function: R shoulder pain ranges from 2-4/10 R shoulder ROM: flex= 160, abd= 150, ER= 55 degrees R shoulder MMT: flex= 23, abd= 49, ER= 26, IR= 30 #F Pt continues to show improvements at this time Plan Plan Plan: Cont with resisted strengthening, rotator cuff and scap stab ex's Balance/Gait/Functional tests Balance/Special Test Scores Quick DASH Score: 15.9075 Goals Goals Goal 1:: Decrease R shoulder pain x 50% to aid with sleep Goal Time Frame: 4-6 Weeks Goal Progress: Goal Met Goal 2:: Increase R shoulder flex and abd ROM to within 90% of L UE to aid with overhead activity Goal Time Frame: 4-6 Weeks Goal Progress: Goal Met Goal 3:: Increase R shoulder flex and abd strength to within 90% of L UE to aid with return to work without limitation Goal Time Frame: 4-6 Weeks Goal Progress: Progressing Goal 4:: I with HEP Goal Time Frame: 4-6 Weeks Goal Progress: Progressing Anticipated Interventions Anticipated Interventions Patient/Client Instruction: Educate patient on: Condition and Plan of Care For the Purpose of:: To improve self management Therapeutic Exercise to Include: Strength training, Endurance training, Flexibilty training, Passive ROM, Active ROM and Scapular Strength/Stabilization For the Purpose of:: To decrease pain, To increase ROM and To improve muscle performance and motor function Cryotherapy (ice pack, ice massage): Yes For the Purpose of:: To decrease pain Re-Evaluation Ending Re-evaluation ending: Please do not hesitate to contact me at [phone] by phone or if you have questions or concerns regarding this new plan of care! Sincerely, Ernesto Ivy, PT, ATC
== END 2023-07-20 19:00 | disposition home or self-care (01) ==
LOC: PT 10:30
PROVIDERS: PCP Family Medicine; Referring Provider Orthopaedic Surgery Sports Medicine; Visit Provider Orthopaedic Surgery Sports Medicine
DX: M75.110 Incomplete rotator cuff tear or rupture of unspecified shoulder, not specified as traumatic (principal); M75.21 Bicipital tendinitis, right shoulder; M54.2 Cervicalgia; R41.3 Other amnesia; F07.81 Postconcussional syndrome
CPT/HCPCS: 72040; 95819; 97110; 97161; 97164

== ENCOUNTER → 2024-01-16 | Outpatient (CLI) | payer BC, SELFPAY | END | disposition home or self-care (01) | LOC: SL 09:09 | PROVIDERS: PCP Family Medicine; Referring Provider Psychiatry & Neurology Neurology; Visit Provider Psychiatry & Neurology Neurology | DX: G47.10 Hypersomnia, unspecified (principal) | CPT/HCPCS: 95806 ==